=== PATIENT | female | born 1995 | race Caucasian/White ===

== ENCOUNTER 2020-08-08 01:26 | Emergency (ER) | payer BC, OTHER ==
[~2020-08-08] VITALS: Ht 160 cm; Wt 68.5 kg
[2020-08-08 01:30] VITALS: BP 132/71
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
[2020-08-08] MEDS ORDERED: ACETAMINOPHEN EXTRA STRENGTH 500 MG TAB PO ONE (02:00)
[2020-08-08 03:02] VITALS: BP 132/71
--- NOTE | 2020-08-08 03:02 | NUR ---
OK TO BOOK.
--- NOTE | 2020-08-08 03:02 | NUR ---
Patient discharged with v/s stable. Written and verbal after care instructions given and explained. Patient verbalized understanding. Ambulatory with steady gait. All questions addressed prior to discharge. Advised to follow up with PMD.
== END 2020-08-08 03:02 ==
LOC: MED 01:26
DX: M25.531 Pain in right wrist (principal); F10.129 Alcohol abuse with intoxication, unspecified; V89.2XXA Person injured in unspecified motor-vehicle accident, traffic, initial encounter; Y93.89 Activity, other specified; Y92.89 Other specified places as the place of occurrence of the external cause; Y99.8 Other external cause status
CPT/HCPCS: 73090; 73130; 99284